=== PATIENT | female | born 1960 | race Caucasian/White ===

== ENCOUNTER 2017-04-13 22:33 | Emergency (ER) | payer SELFPAY ==
[~2017-04-13] VITALS: Ht 167.6 cm; Wt 71.8 kg
[~2017-04-13 22:33] MED LIST: KEFLEX500 MG PO
[2017-04-13] MEDS ORDERED: DOXYCYCLINE HY100 MG PO (23:52)
[2017-04-13] MEDS ORDERED: ZOFRAN4 MG PO (23:52)
[2017-04-13] MEDS ORDERED: PEPCID20 MG PO (23:52)
[2017-04-14] MEDS ORDERED: KEFLEX500 MG PO (00:21)
[2017-04-14 01:00] VITALS: BP 152/92
== END 2017-04-14 01:00 | disposition home or self-care (01) ==
LOC: EME 22:33
DX: E11.621 Type 2 diabetes mellitus with foot ulcer (principal); L97.519 Non-pressure chronic ulcer of other part of right foot with unspecified severity; Z53.20 Procedure and treatment not carried out because of patient's decision for unspecified reasons
CPT/HCPCS: 73630; 87070; 87075; 87205; 99281; 99283